=== PATIENT | male | born 1940 | race Caucasian/White ===

== ENCOUNTER → 2021-06-05 17:24 | Outpatient (CLI) | payer MEDICARE, SELFPAY | PROVIDERS: Visit Provider Nurse Practitioner Family | DX: U07.1 COVID-19 (principal) | CPT/HCPCS: C9803; U0003; U0005 ==

== ENCOUNTER 2022-03-10 11:19 | Emergency (ER) | payer MEDICARE, SELFPAY ==
[2022-03-10 11:20] VITALS: BP 154/76; PULSE 72; RESP 17; TEMP 36.6; O2SAT 97; BMI 28.8
--- NOTE | 2022-03-10 11:49 | EXP.UTC ---
Discharge Plan Disposition Patient Disposition: Home, Self-Care Condition: Good Prescriptions Prescriptions: New prednisone [prednisone] 20 mg tablet 20 mg PO BID Qty: 10 0RF No Action ondansetron 4 mg tablet,disintegrating 4 mg PO Q6H PRN (Reason: nausea and vomiting) Qty: 12 0RF amoxicillin 500 mg capsule 500 mg PO Q12H 10 Days Qty: 20 0RF Referrals Follow up/Referrals: Osito Mcdonald MD [Primary Care Provider] - See instructions Clinical Impressions Clinical Impression: Low back pain due to bilateral sciatica Instructions Patient Instructions: DI for Low Back Pain Discharge ED Provider[facility] [place] General Stated complaint: Leg pain, trouble walking Mode of Arrival: Ambulatory Source of Information: Patient Limitations: No Limitations Time Seen by Provider: 03/10/22 11:49 Description of Symptoms (Recalled from Triage Doc. by RN): PATIENT C/O BILATERAL HIP PAIN THAT RADIATES DOWN LEGS SINCE SATURDAY, WITH LEFT SIDE HURTING WORSE. NO KNOWN INJURY HEENT Symptoms (Recalled from RN notes): No Resp Symptoms (Recalled from RN notes): No Skin Symptoms (Recalled from RN notes): No MS Symptoms (Recalled from RN notes): Yes Functional Status (Recalled from RN notes): WNL History of Present Illness Provider Complaint: 81 YR OLD MALE PATIENT C/O BILATERAL HIP PAIN THAT RADIATES DOWN LEGS SINCE SATURDAY, WITH LEFT SIDE HURTING WORSE. NO KNOWN INJURY. 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 NO LOSS OF BOWEL OR BLADDER. 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) Smoking Status: Never smoker alcohol intake: never current occupational status: retired Travel in the last 8 weeks: Inside the [place] ROS Obtained: Yes All systems reviewed & no additional complaints except as documented Constitutional Constitutional: Reports system reviewed and no additional complaints, except as documented, Denies fatigue and Denies fever(s) Eyes Eyes: Reports system reviewed and no additional complaints, except as documented and Denies itchy eyes ENT Ears, Nose, Mouth, and Throat: Reports system reviewed and no additional complaints, except as documented and Denies nasal congestion Cardiovascular Cardiovascular: Reports system reviewed and no additional complaints, except as documented Respiratory Respiratory: Reports system reviewed and no additional complaints, except as documented Gastrointestinal Gastrointestingal: Reports system reviewed and no additional complaints, except as documented Genitourinary Male Genitourinary: Reports system reviewed and no additional complaints, except as documented and Denies genital lesions Musculoskeletal Musculoskeletal: Reports system reviewed and no additional complaints, except as documented, Reports back pain, Reports limited range of motion and Reports radiating pain into limb Integumentary/Breasts Skin/Breast: Reports system reviewed and no additional complaints, except as documented and Denies rash Neurologic Neurologic: Reports system reviewed and no additional complaints, except as documented and Denies confusion Endocrine Endocrine: Reports system reviewed and no additional complaints, except as documented and Denies fatigue Hematologic/Lymphatic Henatologic/Lymphatic: Reports system reviewed and no additional complaints, except as documented Allergic/Immunologic Allergic/Immunologic: Reports system rev
[2022-03-10 12:02] VITALS: BP 154/76; PULSE 72; RESP 17; TEMP 36.6; O2SAT 97
== END 2022-03-10 12:10 | disposition home or self-care (01) ==
PROVIDERS: Emergency Provider Nurse Practitioner Family; PCP Emergency Medicine
DX: M54.41 Lumbago with sciatica, right side (principal); M54.42 Lumbago with sciatica, left side
CPT/HCPCS: 96372; 99212; G0463

== ENCOUNTER 2022-05-12 10:33 | Emergency (ER) | payer MEDICARE, SELFPAY ==
--- NOTE | 2022-05-12 12:53 | EXP.UTC ---
Discharge Plan Disposition Patient Disposition: Home, Self-Care Condition: Good Prescriptions Prescriptions: New azithromycin [Zithromax] 250 mg tablet 250 mg PO UD DOSE PK Qty: 6 0RF Rx Instructions: Take two (2) tablets today, then one (1) tablet days #2 thru #5 benzonatate [benzonatate] 100 mg capsule 100 mg PO TIDP PRN (Reason: Cough) Qty: 30 0RF oseltamivir [Tamiflu] 75 mg capsule 75 mg PO BID Qty: 10 0RF No Action ondansetron 4 mg tablet,disintegrating 4 mg PO Q6H PRN (Reason: nausea and vomiting) Qty: 12 0RF amoxicillin 500 mg capsule 500 mg PO Q12H 10 Days Qty: 20 0RF prednisone [prednisone] 20 mg tablet 20 mg PO BID Qty: 10 0RF Referrals Follow up/Referrals: Osito Mcdonald MD [Primary Care Provider] - See instructions Activity Restrictions/Add. Instructions Additional Instructions/Restrictions: Drink plenty of fluids. Take tylenol or ibuprofen for pain or fever. Take the medications as directed. Follow up with your regular doctor. GO TO THE ER FOR ANY WORSENING SYMPTOMS Clinical Impressions Clinical Impression: Influenza A Instructions Patient Instructions: DI for Influenza -- Adult, Oseltamivir Discharge ED Provider: Gregg Milan [facility] General Stated complaint: Nausea,Congestion,headache Time Seen by Provider: 05/12/22 12:53 History of Present Illness Provider Complaint: He states that for the past 1 day he has had body aches, chills, fever and malaise. He has a productive cough with greenish sputum also. Related Data Previous Rx's Medication Instructions Recorded amoxicillin 500 mg capsule 500 mg PO Q12H sinusitis 10 days 06/05/21 #20 caps ondansetron 4 mg disintegrating 4 mg PO Q6H PRN nausea and 06/05/21 tablet vomiting #12 tabs prednisone 20 mg tablet 20 mg PO BID #10 tabs 03/10/22 azithromycin 250 mg tablet 250 mg PO UD DOSE PK #6 tabs 05/12/22 (Zithromax) benzonatate 100 mg capsule 100 mg PO TIDP PRN Cough #30 caps 05/12/22 oseltamivir 75 mg capsule (Tamiflu) 75 mg PO BID #10 caps 05/12/22 Allergies Allergy/AdvReac Type Severity Reaction Status Date / Time No Known Allergies Allergy Verified 05/12/22 13:09 [facility] Disclaimer: The information contained in this section may have been updated after the patient was seen, as this information can be updated by other users. Social History Smoking Status: Never smoker alcohol intake: never current occupational status: retired Travel in the last 8 weeks: Inside the [place] ROS Obtained: Yes All systems reviewed & no additional complaints except as documented Constitutional Constitutional: Reports chills and Reports fever(s) Eyes Eyes: Denies eye discharge ENT Ears, Nose, Mouth, and Throat: Reports as per HPI Cardiovascular Cardiovascular: Denies chest pain and Denies dyspnea Respiratory Respiratory: Denies shortness of breath, Reports chest congestion, Reports cough, Denies dyspnea, Denies stridor and Denies wheezing Gastrointestinal Gastrointestingal: Reports nausea; Denies abdominal pain, constipation, cramping, diarrhea or vomiting Musculoskeletal Musculoskeletal: Denies arthralgias Integumentary/Breasts Skin/Breast: Denies rash Neurologic Neurologic: Denies paresthesias Allergic/Immunologic Allergic/Immunologic: Denies wheezing Physical Exam General General appearance: alert and in no apparent distress Head Head exam: atraumatic, normocephalic and normal inspection Eye Eye exam: Present normal appearance, PERRL and EOMI ENT ENT exam: Present normal exam, normal oropharynx, mucous membranes moist, TM's normal bilaterally and normal external ear exam Neck Neck exam: Present normal inspection, full ROM and trachea midline; Absent meningismus or lymphadenopathy Chest Chest inspection: Present normal inspection and symmetric chest wall rise; Absent tenderness Respiratory Respiratory e
[2022-05-12 13:01] LABS: UTC Influenza A Antigen Positive (Negative); UTC Influenza B Antigen Negative (Negative)
[2022-05-12 13:05] VITALS: BP 124/91; PULSE 101; RESP 16; TEMP 37.1; O2SAT 95; BMI 33.4
[2022-05-12 13:43] VITALS: BP 124/91; PULSE 101; RESP 16; TEMP 37.1
== END 2022-05-12 13:45 | disposition home or self-care (01) ==
PROVIDERS: Emergency Provider Nurse Practitioner Family; PCP Emergency Medicine
DX: J10.1 Influenza due to other identified influenza virus with other respiratory manifestations (principal); R50.9 Fever, unspecified; R11.2 Nausea with vomiting, unspecified; R09.81 Nasal congestion; R51.9 Headache, unspecified; R53.81 Other malaise; R05.9 Cough, unspecified; Z79.52 Long term (current) use of systemic steroids; Z79.899 Other long term (current) drug therapy
CPT/HCPCS: 87804; 99213; G0463

== ENCOUNTER 2022-12-08 09:24 | Emergency (ER) | payer MEDICARE, SELFPAY ==
[2022-12-08 09:25] VITALS: BP 178/94; PULSE 81; RESP 18; TEMP 36.4; O2SAT 96; BMI 30.4
--- NOTE | 2022-12-08 09:25 | ECG_ITS ---
APPROVED REPORT Exam: Resting ECG HR:78 bpm ECG Measurements Heart Rate 78 AXES WI 177 P 49 QRSd 138 QRS -32 QT 391 T 52 QTc 424 Conclusion SINUS RHYTHM LEFT AXIS DEVIATION [QRS AXIS < -30] RIGHT BUNDLE BRANCH BLOCK [120+ ms QRS DURATION, UPRIGHT V1, 40+ ms S IN I/aVL/V4/V5/V6] POSSIBLE SEPTAL MYOCARDIAL INFARCTION , PROBABLY OLD [30 ms Q WAVE IN V1/V2] ABNORMAL ECG INTERPRETATION BASED ON A DEFAULT AGE OF 40 YEARS UNCONFIRMED REPORT Electronically signed by : Miguel Piña MD 12/10/2022 08:18:31
--- NOTE | 2022-12-08 09:28 | PC.NURSE ---
dr law at bedside
[2022-12-08 09:30] VITALS: BMI 30.4
--- NOTE | 2022-12-08 09:30 | XR_ITS ---
PROCEDURE INFORMATION: Exam: XR Chest Exam date and time: 12/08/2022 9:38 AM Age: 82 years old Clinical indication: Pain; Chest pressure; Additional info: Chest pain- high blood pressure TECHNIQUE: Imaging protocol: Radiologic exam of the chest. Views: 1 view. COMPARISON: No relevant prior studies available. FINDINGS: Lungs: Unremarkable. No consolidation. Pleural spaces: Unremarkable. No pleural effusion. No pneumothorax. Heart/Mediastinum: Unremarkable. No cardiomegaly. Bones/joints: Unremarkable. IMPRESSION: No acute findings.
--- NOTE | 2022-12-08 09:33 | HMH.EDCP ---
Discharge Plan Disposition Patient Disposition: Home, Self-Care Condition: Good Chief Complaint: Chest Pain Prescriptions Prescriptions: No Action No Known Home Medications Referrals Follow up/Referrals: Provider,Lyle, [Primary Care Provider] - See instructions Activity Restrictions/Add. Instructions Additional Instructions/Restrictions: Please follow-up with your primary care doctor within about 1 week. I recommend that you be seen by e commerce web developer to be evaluated. Please discussed the possible need for stress test. Return to the emergency department immediately if you feel worse in any way. Your work-up in the emergency department today did not show any life-threatening or dangerous causes for your chest pain. I suspect that it may be due to reflux disease since it is worse when you are laying flat. Clinical Impressions Clinical Impression: Atypical chest pain Instructions Patient Instructions: DI for Atypical Chest Pain Discharge ED Provider: Mohsen Belle Chest Pain HPI General Chief Complaint: Chest Pain Stated Complaint: chest pain Time Seen by Provider: 12/08/22 09:27 Mode of Arrival: Family Vehicle History of Present Illness HPI narrative: The patient presents to the emergency department complaining of central and left-sided chest pain for the last 2 days. It is episodic and lasts approximately 30 minutes at a time. It is worse when laying down. It is not exacerbated by exertion. The patient has no cardiac history. He takes no medications. He is in good health. He seeks his medical care at the [facility]. However, Dr. Mcdonald is his primary care doctor on his paperwork. He has never seen Dr. Mcdonald. He denies shortness of breath, fever, nausea, vomiting. BOBBY Score for Non-Stemi Age of Patient: 80-89 years old Heart Rate: 70-89 bpm Systolic Blood Pressure: 160-199 mmHg Serum Creatinine: 1.20-1.59 mg/dl CHF [place] Class: I-No CHF Other Risk Factors: None Non-Stemi Risk Score: 120 Related Data Home Medications Medication Instructions Recorded Confirmed No Known Home Medications 12/08/22 12/08/22 Allergies Allergy/AdvReac Type Severity Reaction Status Date / Time No Known Allergies Allergy Verified 05/12/22 13:09 [facility] Disclaimer: The information contained in this section may have been updated after the patient was seen, as this information can be updated by other users. Surgical History (Updated 12/08/22 @ 09:35 by Tatiana Mcgovern RN) H/O: knee surgery Family History (Updated 12/08/22 @ 09:35 by Tatiana Mcgovern RN) Other No significant family history Social History (Updated 12/08/22 @ 09:35 by Tatiana Mcgovern RN) Smoking Status: Former smoker alcohol intake: never current occupational status: retired Travel in the last 8 weeks: None ROS Obtained: Yes All systems reviewed & no additional complaints except as documented Physical Exam General General appearance: alert and in no apparent distress Head Head exam: atraumatic Eye Eye exam: Present normal appearance ENT ENT exam: Present normal exam Neck Neck exam: Present normal inspection and full ROM; Absent tenderness or meningismus Chest Chest inspection: Present normal inspection and symmetric chest wall rise; Absent tenderness Respiratory Respiratory exam: Present normal lung sounds bilaterally; Absent respiratory distress or accessory muscle use Cardiovascular Cardiovascular exam: Present regular rate, normal rhythm and normal heart sounds Abdominal Exam Abdominal exam: Present soft and normal bowel sounds; Absent distention, tenderness, heel tap sign, Vanegas's sign, Rovsing's sign, tenderness at McBurney's Point or mass Extremities Exam Extremities exam: Present normal inspection and full ROM; Absent edema or calf tenderness Back Exam Back exam: Present normal inspection; Absent CVA tenderness (R) or CVA tenderness (L) Neurological Exam Neurological exam: Pres
[2022-12-08 09:39] LABS: Basophils % 0.6 % (0.1-2.0); Eosinophils # 0.1 K/mm3 (0.0-0.4); Eosinophils % 1.3 % (0.1-12.0); Hematocrit 50.7 % (42.0-52.0); Hemoglobin 16.2 g/dL (14.1-18.0); Lymphocytes # 1.4 K/mm3 (0.7-4.5); Lymphocytes % 18.8 % (10-50); Mean Corpuscular Hemoglobin 29.3 pg (27.0-31.2); Mean Corpuscular Volume 91.4 fl (80-94); Mean Platelet Volume 8.1 fl (7.4-10.4); Monocytes # 0.4 K/mm3 (0.1-1.0); Monocytes % 4.9 % (1.7-9.3); Neutrophils # 5.4 K/mm3 (1.8-7.8); Neutrophils % 74.4 % (37.0-80.0); Platelet Count 295 K/mm3 (142-424); Red Blood Count 5.54 M/mm3 (4.60-6.20); Red Cell Distribution Width 13.3 % (11.5-17.5); White Blood Count 7.3 K/mm3 (4.8-10.8)
--- NOTE | 2022-12-08 09:42 | PC.NURSE ---
XR AT BEDSIDE
[2022-12-08 09:45] LABS: Anion Gap 13.5 mEq/L (5-15); Blood Urea Nitrogen 15 mg/dl (9-20); Calcium 8.9 mg/dl (8.4-10.2); Carbon Dioxide 25 mmol/L (22.0-30.0); Chloride 105 mmol/L (98-107); Creatinine Clearance Estimated 62 mL/min (50-200); Estimated Glomerular Filt Rate 58 ml/min (>60); GFR (African American) 70 ML/MIN (>60); Glucose 111 mg/dl (74-100); Potassium 3.5 mmoL/L (3.5-5.1); Sodium 140 mmol/L (136-145)
[2022-12-08 10:00] VITALS: BP 117/103; PULSE 68; RESP 12; O2SAT 97
[2022-12-08 10:00] LABS: Troponin I < 0.01 ng/ml (0.00-0.034)
--- NOTE | 2022-12-08 10:02 | PC.NURSE ---
ROUNDED ON PT, UPDATED ON POC. NO NEEDS AT THIS TIME. FAMILY AT BEDSIDE
--- NOTE | 2022-12-08 10:08 | PC.NURSE ---
DR KING AT BEDSIDE TO UPDATE PT AND FAMILY
[2022-12-08 10:20] VITALS: BP 160/90; PULSE 68; RESP 18; TEMP 36.6; O2SAT 96
== END 2022-12-08 10:23 | disposition home or self-care (01) ==
PROVIDERS: Emergency Provider Emergency Medicine
DX: R07.89 Other chest pain (principal); I45.19 Other right bundle-branch block; R94.31 Abnormal electrocardiogram [ECG] [EKG]; Z87.891 Personal history of nicotine dependence
CPT/HCPCS: 71045; 80048; 84484; 85025; 93005; 99284

== ENCOUNTER → 2022-12-12 09:10 | Outpatient (CLI) | payer MEDICARE, SELFPAY ==
[2022-12-12 10:11] LABS: Alanine Aminotransferase 22 U/L (12-78); Albumin Level 4.1 g/dl (3.5-5.0); Alkaline Phosphatase 80 U/L (38-126); Aspartate Amino Transferase 30 U/L (17-59); Bilirubin,Indirect 0.9 mg/dL (0.0-0.9); Bilirubin,Total 0.9 mg/dl (0.2-1.3); Bilirubin,Unconjugated 1.1 mg/dL (0.0-1.1); Chol/HDL Ratio 4.4 (1-3.5); Cholesterol 169 mg/dl (140-200); HDL Cholesterol 38 mg/dl (40-60); Total Protein,Serum 6.4 g/dl (6.3-8.2); Triglycerides 70 mg/dl (30-150); VLDL Cholesterol 14 mg/dL (0-40)
[2022-12-12 10:22] LABS: Direct LDL Cholesterol 106.27 mg/dL (100-129)
== END ==
PROVIDERS: PCP Emergency Medicine; Visit Provider Nurse Practitioner
DX: E78.5 Hyperlipidemia, unspecified (principal); R07.89 Other chest pain
CPT/HCPCS: 36415; 80061; 80076

== ENCOUNTER → 2022-12-14 06:11 | Outpatient (CLI) | payer MEDICARE, SELFPAY ==
--- NOTE | 2022-12-14 | CA_ITS ---
APPROVED REPORT Exam: Pharmacologic Technologist: Ansley Gold, Ht: 5 ft 8 in Wt: 191 lbs BSA: 2.00 m2 HR: 66 bpm BP: 149/71 mmHg Rhythm: NSR, RBBB. LAFB, DELAYED R/S TRANSITION Medical History Medical History: HTN Medications: Omeprazole,,,,, Allergies: No known drug allergies Cardiac Risk Factors: HTN, Smoking Stress Test Details Test: LEXISCAN HR Resting HR: 72 bpm Max Heart Rate (APMHR): 139 bpm Max HR Achieved: 96 bpm Target HR (85% APMHR): 118 bpm % of APMHR: 69 Recovery HR: 82 bpm BP Resting BP: 149/71 mmHg Max BP: 152/73 mmHg Recovery BP: 141.0/67.0 mmHg ECG Resting ECG: NSR, RBBB, LAFB, DELAYED R/S TRANSITION Stress ECG: NO CHANGE Arrhythmia: NONE Recovery ECG: NO CHANGE Recovery Arrhythmia: NONE Clinical Exercise duration: 04:00 min Highest Stage Achieved: Exercise capacity: 1.0 METs Stress ECG Conclusion NO SYMPTOMS NO SIGNIFICANT ST CHANGES WITH STRESS UNREMARKABLE LEXISCAN STRESS MYOVIEW IMAGES REPORTED SEPARATELY Test Summary REST 04:07 . . 72 . 149/ 71 . . Stage 1 01:00 . . 79 . . . . Stage 2 01:00 . . 93 . 152/ 73 . . Stage 3 01:00 . . 90 . 147/ 71 . . Stage 4 01:00 . . 86 . 139/ 70 . Stop exercise at 04:00 RECOVERY 01:00 . . 83 . . . . RECOVERY 02:00 . . 83 . 141/ 67 . . RECOVERY 02:17 . . 84 . 141/ 67 . . Electronically signed by : Deann Castro, 12/22/2022 15:01:42
--- NOTE | 2022-12-14 06:17 | NM_ITS ---
APPROVED REPORT Exam: Nuclear Stress Test Indication: chest pain Patient Location: Outpatient Stress Tech: Ansley Gold [place] Tech:Tatiana Riley TATIANA RT(R)(N) Ht: 5 ft 8 in Wt: 190 lbs HR: 72 bpm BP: 149/71 mmHg BSA: 2.00 m2 TID: 0.93 BMI: 28.8 History: chest pain Procedure: Patient received 0.0 mg of intravenous Lexiscan, resting heart rate 72 bpm, resting blood pressure 149/71 mmHg, with Lexiscan maximum heart rate achieved was 96 bpm which is 85 % of the maximum predicted heart rate and blood pressure was 152/73 mmHg. With Lexiscan, patient denied any complaint of chest pain. Cardiac Stress and Resting SPECT Images: Cardiac Stress and Resting SPECT images were obtained using technetium 99m Myoview 32.8 mCi stress and 10.60 mCi at rest. Resting and stress imaging in supine position demonstrate a large-sized, moderate, fixed perfusion defect in the inferior and inferoapical LV region. This defect is no longer visualized with prone stress imaging. Findings are suggestive of possible diaphragmatic attenuation. Gated imaging demonstrates a low-normal global and regional LV systolic function. LVEF is calculated at 53%. Conclusion: Diaphragmatic attenuation is present. No definite fixed or perfusion defects are present. Gated imaging demonstrates a low-normal global and regional LV systolic function. LVEF is calculated at 53%. Electronically signed by : Deann Castro, 12/22/2022 15:08:02
== END ==
PROVIDERS: PCP Emergency Medicine; Visit Provider Nurse Practitioner
DX: R07.89 Other chest pain (principal)
CPT/HCPCS: 78452; 93017; A9502; J2785

== ENCOUNTER 2024-04-16 17:47 | Emergency (ER) | payer MEDICARE, SELFPAY ==
--- NOTE | 2024-04-16 17:50 | ECG_ITS ---
APPROVED REPORT Exam: Resting ECG HR:88 bpm ECG Measurements Heart Rate 88 AXES WA 173 P 60 QRSd 142 QRS -30 QT 382 T 46 QTc 428 Conclusion Sinus rhythm Right bundle branch block Electronically signed by : DEBBIE MCINTYRE, 04/16/2024 23:07:14
--- NOTE | 2024-04-16 17:59 | ED_ITS ---
Discharge Plan Disposition Patient Disposition: Home, Self-Care Condition: Good Prescriptions Prescriptions: No Action omeprazole 20 mg tablet,delayed release (DR/EC) 20 mg PO DAILY Referrals Follow up/Referrals: Samm Grace APRN [Primary Care Provider] - See instructions Femi Negro II, MD [Staff Physician] - See instructions Ab Castro MD [Staff Physician] - See instructions Activity Restrictions/Add. Instructions Additional Instructions/Restrictions: Continue taking your GERD medication. I have referred you to both cardiology and gastroenterology for further evaluation of this chest pain that also may be possibly gastrointestinal nature. Follow-up with your PCP within 48 hours. Return to ER for any worsening signs or symptoms as needed Clinical Impressions Clinical Impression: Chest pain Qualifiers: Chest pain type: unspecified Qualified Code(s): R07.9 - Chest pain, unspecified Print Language Print Language: Thai Discharge ED Provider: Andrew Irvin HPI <CHANNING Cox - Last Filed: 04/16/24 22:52> General Stated Complaint: chest pain Time Seen by Provider: 04/16/24 17:59 History of Present Illness HPI narrative: Patient presents for evaluation of chest pain. Patient gives a history of 3 days of continuous substernal chest pain. It does not radiate. He has no known cardiac history. He denies any fever chills hemoptysis hematochezia melena nausea vomiting diarrhea sore throat shortness of breath. Related Data Home Medications ?Medication ?Instructions ?Recorded ?Confirmed omeprazole 20 mg tablet,delayed 20 mg PO DAILY 12/12/22 01/30/23 release Allergies Allergy/AdvReac Type Severity Reaction Status Date / Time No Known Allergies Allergy Verified 01/30/23 09:32 PFS <CHANNING Cox - Last Filed: 04/16/24 22:52> [facility] Disclaimer: The information contained in this section may have been updated after the patient was seen, as this information can be updated by other users. Surgical History H/O: knee surgery Family History Other No significant family history Social History Smoking Status: Former smoker alcohol intake: never current occupational status: retired Travel in the last 8 weeks: None Other Medical History Have you received the Pneumonia Vaccine: Yes <CHANNING Cox - Last Filed: 04/16/24 22:52> ROS Obtained: Yes Systems reviewed as appropriate & no additional complaints except as documented Physical Exam <CHANNING Cox - Last Filed: 04/16/24 22:52> General General appearance: alert and in no apparent distress Respiratory Respiratory exam: Present normal lung sounds bilaterally Cardiovascular Cardiovascular exam: Present regular rate Neurological Exam Neurological exam: Present alert and oriented X3 HEART Score <CHANNING Cox - Last Filed: 04/16/24 22:52> HEART Score HEART Score assessment performed?: Yes History (anamnesis): Slightly suspicious ECG: Normal Age: >65 years Risk factors: 1-2 risk factors Troponin: </= normal limit HEART Score: 3 <Andrew Irvin MD - Last Filed: 04/16/24 23:14> HEART Score HEART Score: 3 Critical Care <CHANNING Cox - Last Filed: 04/16/24 22:52> Critical Care Time Critical Care Time: No Medical Decision Making <CHANNING Cox - Last Filed: 04/16/24 22:52> Medical Records Medical records reviewed: Yes I reviewed the patient's medical records. Bartolome Inquiry Pt receiving controlled substance: No Vital Signs Vital Signs: 04/16/24 19:20 Temperature 98.2 F Temperature Source Oral Pulse Rate 73 Respiratory Rate 18 Blood Pressure 135/76 Oxygen Delivery Method Room Air Lab Data Lab results reviewed: Yes I reviewed the patient's lab results. Labs: Lab Results 04/16/24 17:52: WBC 9.2, RBC 5.23, Hgb 16.2, Hct 47.3, MCV 90.5, MCH 31.0, MCHC 34.3, RDW 13.3, Plt Count 322, MPV 7.7, Neut % (Auto) 70.1, Lymph % (Auto) 21.0, [place] % (Auto) 6.9, Eos % (Auto) 1.1, Baso % (Auto) 0.8, Neut # (Auto) 6.4, Lymph # (Auto) 1.9, [place] # (Auto) 0.6, Eos # (Auto) 0.1, Baso # (Auto) 0.1, PT 10.9, INR 0.97, D-Dimer 0.71 H, Sodium 140, Potassium 3.6, Chloride 107, Carbon Dioxide 25, Anion Gap 11.6, BUN 15, Creatinine 1.40 H, Estimated GFR 49 L, Est GFR ( Amer) 59, Glucose 114 H, Calcium 9.2, Magnesium 2.3, Total Bilirubin 1.2, AST 29, ALT 21, Alkaline Phosphatase 78, Troponin I < 0.01, NT-Pro-B Natriuret Pep 77.8, Total Protein 7.4, Albumin 4.5, Globulin 2.9, Albumin/Globulin Ratio 1.6, Lipase 149, TSH 4.35, Free T4 Index 3.2 L, Thyroxine (T4) 9.1, T3 Uptake 35 04/16/24 17:52 04/16/24 17:52 Response Orders (Tests/Meds): ED MEDICATIONS Discontinued Medications Generic Name Dose Route Start Last Admin Trade Name Nichole PRN Reason Stop Dose Admin Acetaminophen 1,000 mg 04/16/24 17:59 04/16/24 19:15 Acetaminophen 1,000mg/100ml Vial IV 04/16/24 18:00 1,000 mg ONCE ONE Administration Belladonna Alkaloids 60 ml 04/16/24 17:59 04/16/24 19:14 Belladonna Alkaloids 60 Ml Ml PO 04/16/24 18:00 60 ml ONCE ONE Administration Ketorolac Tromethamine 15 mg 04/16/24 17:59 04/16/24 19:15 Ketorolac 30mg/Ml Vial IV 04/16/24 18:00 15 mg ONCE ONE Administration ORDERS Category Date Time Status Chest XR 2 view (NOT portable) [XR chest 2V] Stat Exams 04/16/24 18:00 Completed BNP [NT Pro Brain Natriuretic Pep.] Stat Lab 04/16/24 17:52 Completed CBC w/Auto Diff [Complete Blood Count Auto Diff] Stat Lab 04/16/24 17:52 Completed CMP [Comprehensive Metabolic Panel] Stat Lab 04/16/24 17:52 Completed D-Dimer Stat Lab 04/16/24 17:52 Completed INR [Prothrombin Time INR] Stat Lab 04/16/24 17:52 Completed Lipase Stat Lab 04/16/24 17:52 Completed Magnesium Stat Lab 04/16/24 17:52 Completed Thyroid Panel Stat Lab 04/16/24 17:52 Completed Trop I [Troponin I] Stat Lab 04/16/24 17:52 Completed MDM Narrative Medical Decision Narrative: In summary patient is a 83-year-old male who presents to the emergency department for evaluation of chest pain. Patient is hemodynamically stable upon arrival, febrile. Physical exam is remarkable for nonreproducible chest pain on evaluation with normal breath sounds normal heart sounds no abdominal tenderness with normal bowel sounds. Differential diagnosis includes ACS versus GERD versus esophagitis versus ulcer disease etc. Initial workup will be conducted with hematologic labs twelve-lead EKG plain film chest x-ray COVID and flu swabs. Initial interventions include Tylenol Toradol GI cocktail. Initial workup reviewed by me shows that his hematologic labs are nonactionable, D-dimer is age appropriately negative, his troponin is undetectable, his plain film chest x-ray personally interpreted informally by me shows no acute processes. Upon repeat evaluation patient had complete resolution of his symptoms after initial intervention. Given this given this we have essentially ruled out any acute or serious life-threatening conditions and as he has had continuous chest pain for 3 days and a negative troponin makes outpatient follow-up more appropriate with a heart score of 3. To that end patient will be referred to cardiology and gastroenterology for further investigation. Patient given strict return precautions. <Andrew Irvin MD - Last Filed: 04/16/24 23:14> Vital Signs Vital Signs: 04/16/24 19:20 Temperature 98.2 F Temperature Source Oral Pulse Rate 73 Respiratory Rate 18 Blood Pressure 135/76 Oxygen Delivery Method Room Air Lab Data Labs: Lab Results 04/16/24 17:52: WBC 9.2, RBC 5.23, Hgb 16.2, Hct 47.3, MCV 90.5, MCH 31.0, MCHC 34.3, RDW 13.3, Plt Count 322, MPV 7.7, Neut % (Auto) 70.1, Lymph % (Auto) 21.0, [place] % (Auto) 6.9, Eos % (Auto) 1.1, Baso % (Auto) 0.8, Neut # (Auto) 6.4, Lymph # (Auto) 1.9, [place] # (Auto) 0.6, Eos # (Auto) 0.1, Baso # (Auto) 0.1, PT 10.9, INR 0.97, D-Dimer 0.71 H, Sodium 140, Potassium 3.6, Chloride 107, Carbon Dioxide 25, Anion Gap 11.6, BUN 15, Creatinine 1.40 H, Estimated GFR 49 L, Est GFR ( Amer) 59, Glucose 114 H, Calcium 9.2, Magnesium 2.3, Total Bilirubin 1.2, AST 29, ALT 21, Alkaline Phosphatase 78, Troponin I < 0.01, NT-Pro-B Natriuret Pep 77.8, Total Protein 7.4, Albumin 4.5, Globulin 2.9, Albumin/Globulin Ratio 1.6, Lipase 149, TSH 4.35, Free T4 Index 3.2 L, Thyroxine (T4) 9.1, T3 Uptake 35 Response Orders (Tests/Meds): ED MEDICATIONS Discontinued Medications Generic Name Dose Route Start Last Admin Trade Name Freq PRN Reason Stop Dose Admin Acetaminophen 1,000 mg 04/16/24 17:59 04/16/24 19:15 Acetaminophen 1,000mg/100ml Vial IV 04/16/24 18:00 1,000 mg ONCE ONE Administration Belladonna Alkaloids 60 ml 04/16/24 17:59 04/16/24 19:14 Belladonna Alkaloids 60 Ml Ml PO 04/16/24 18:00 60 ml ONCE ONE Administration Ketorolac Tromethamine 15 mg 04/16/24 17:59 04/16/24 19:15 Ketorolac 30mg/Ml Vial IV 04/16/24 18:00 15 mg ONCE ONE Administration ORDERS Category Date Time Status Chest XR 2 view (NOT portable) [XR chest 2V] Stat Exams 04/16/24 18:00 Completed BNP [NT Pro Brain Natriuretic Pep.] Stat Lab 04/16/24 17:52 Completed CBC w/Auto Diff [Complete Blood Count Auto Diff] Stat Lab 04/16/24 17:52 Completed CMP [Comprehensive Metabolic Panel] Stat Lab 04/16/24 17:52 Completed D-Dimer Stat Lab 04/16/24 17:52 Completed INR [Prothrombin Time INR] Stat Lab 04/16/24 17:52 Completed Lipase Stat Lab 04/16/24 17:52 Completed Magnesium Stat Lab 04/16/24 17:52 Completed Thyroid Panel Stat Lab 04/16/24 17:52 Completed Trop I [Troponin I] Stat Lab 04/16/24 17:52 Completed ECG Data Tracing #1: Attestation: I reviewed this ECG and interpreted as documented below: (Sinus rhythm 88 beats a minute without ST or T wave changes concerning for acute ischemia. Right bundle branch block morphology intervals within normal limits otherwise.) MDM Narrative Medical Decision Narrative: In summary patient is a 83-year-old male who presents to the emergency department for evaluation of chest pain. Patient is hemodynamically stable upon arrival, febrile. Physical exam is remarkable for nonreproducible chest pain on evaluation with normal breath sounds normal heart sounds no abdominal tenderness with normal bowel sounds. Differential diagnosis includes ACS versus GERD versus esophagitis versus ulcer disease etc. Initial workup will be conducted with hematologic labs twelve-lead EKG plain film chest x-ray COVID and flu swabs. Initial interventions include Tylenol Toradol GI cocktail. Initial workup reviewed by me shows that his hematologic labs are nonactionable, D-dimer is age appropriately negative, his troponin is undetectable, his plain film chest x-ray personally interpreted informally by me shows no acute processes. Upon repeat evaluation patient had complete resolution of his symptoms after initial intervention. Given this given this we have essentially ruled out any acute or serious life-threatening conditions and as he has had continuous chest pain for 3 days and a negative troponin makes outpatient follow-up more appropriate with a heart score of 3. To that end patient will be referred to cardiology and gastroenterology for further investigation. Patient given strict return precautions. I was consulted by the VY, and we discussed the complexity of the problems being addressed. I approved the treatment and management plan for this patient's care in the Emergency Department, thus performing a substantive portion of the medical decision making. Andrew Irvin MD
--- NOTE | 2024-04-16 18:00 | XR_ITS ---
PROCEDURE INFORMATION: Exam: XR Chest Exam date and time: 04/16/2024 6:25 PM Age: 83 years old Clinical indication: Pain; Other: Chest; Additional info: Chest pain TECHNIQUE: Imaging protocol: Radiologic exam of the chest. Views: 2 views. PA and Lateral COMPARISON: No relevant prior studies available. FINDINGS: Tubes, catheters and devices: Surgical clips overlie the right abdomen. Lungs: Left lung volume appears decreased. Linear density identified within left lower lung. Possible atelectasis or scarring. The lungs appear otherwise clear. Pleural spaces: No pleural effusion. No pneumothorax. Heart/Mediastinum: Mediastinum and efrain appear unremarkable. Diaphragm: Elevation of the left hemidiaphragm is demonstrated. Bones/joints: Mild to moderate generalized bony degenerative changes. Bony structures appear otherwise unremarkable. IMPRESSION: Linear left lower chest pulmonary atelectasis or scarring. Left lung volume loss.
[2024-04-16 18:14] LABS: Albumin Level 4.5 g/dl (3.5-5.0); Chloride 107 mmol/L (98-107)
[2024-04-16 18:15] LABS: Potassium 3.6 mmoL/L (3.5-5.1); Sodium 140 mmol/L (136-145)
[2024-04-16 18:17] LABS: Alanine Aminotransferase 21 U/L (12-78); Aspartate Amino Transferase 29 U/L (17-59); Blood Urea Nitrogen 15 mg/dl (9-20); Estimated Glomerular Filt Rate 49 ml/min (>60); GFR (African American) 59 ML/MIN (>60); INR 0.97 (0.9-1.1); Prothrombin Time 10.9 seconds (10.1-12.5)
[2024-04-16 18:18] LABS: Albumin/Globulin Ratio 1.6 (1.1-1.8); Alkaline Phosphatase 78 U/L (38-126); Anion Gap 11.6 mEq/L (5-15); Bilirubin,Total 1.2 mg/dl (0.2-1.3); Calcium 9.2 mg/dl (8.4-10.2); Carbon Dioxide 25 mmol/L (22.0-30.0); Globulin 2.9 g/dL (1.3-3.2); Glucose 114 mg/dl (74-100); Lipase 149 U/L (23-300); Magnesium 2.3 mg/dl (1.6-2.3); Total Protein,Serum 7.4 g/dl (6.3-8.2)
[2024-04-16 18:21] LABS: Basophils # 0.1 K/mm3 (0-0.2); Basophils % 0.8 % (0.1-2.0); Eosinophils # 0.1 K/mm3 (0.0-0.4); Eosinophils % 1.1 % (0.1-12.0); Hematocrit 47.3 % (42.0-52.0); Hemoglobin 16.2 g/dL (14.1-18.0); Lymphocytes # 1.9 K/mm3 (0.7-4.5); Mean Corpuscular HGB Conc 34.3 g/dL (31.8-35.4); Mean Corpuscular Volume 90.5 fl (80-94); Mean Platelet Volume 7.7 fl (7.4-10.4); Monocytes # 0.6 K/mm3 (0.1-1.0); Monocytes % 6.9 % (1.7-9.3); Neutrophils # 6.4 K/mm3 (1.8-7.8); Neutrophils % 70.1 % (37.0-80.0); Platelet Count 322 K/mm3 (142-424); Red Blood Count 5.23 M/mm3 (4.60-6.20); Red Cell Distribution Width 13.3 % (11.5-17.5); White Blood Count 9.2 K/mm3 (4.8-10.8)
[2024-04-16 18:27] LABS: NT Pro Brain Natriuretic Pep. 77.8 pg/mL (0-450)
[2024-04-16 18:33] LABS: Troponin I < 0.01 ng/ml (0.00-0.034)
[2024-04-16 18:37] LABS: D-Dimer 0.71 ug/mL (0.0-0.5)
[2024-04-16 18:39] LABS: Triiodothryronine (T3) Uptake 35 % (23.5-40.5)
[2024-04-16 18:40] LABS: Free Thyroxine Index 3.2 ug/dL (5.93-13.13); T4 (Thyroxine) 9.1 ug/dl (5.53-11.0)
[2024-04-16 18:53] LABS: Thyroid Stimulating Hormone 4.35 uIU/mL (0.465-4.68)
[2024-04-16] MEDS: BELLADONNA ALKALOIDS 60 ML ML PO (19:14)
[2024-04-16] MEDS: ACETAMINOPHEN 1,000MG/100ML VIAL 1000 MG IV (19:15)
[2024-04-16] MEDS: KETOROLAC 30MG/ML VIAL 15 MG IV (19:15)
[2024-04-16 19:20] VITALS: BP 135/76; PULSE 73; RESP 18; TEMP 36.8; O2SAT 97
== END 2024-04-16 19:23 | disposition home or self-care (01) ==
PROVIDERS: Physician Assistant; Emergency Provider Emergency Medicine; PCP Nurse Practitioner Family
DX: R07.9 Chest pain, unspecified (principal)
CPT/HCPCS: 71046; 80053; 83690; 83735; 83880; 84436; 84443; 84479; 84484; 85025; 85378; 85610; 93005; 96374; 96375; 99285; J0131; J1885

== ENCOUNTER 2024-05-29 08:50 | Outpatient (CLI) | payer MEDICARE, SELFPAY ==
[2024-05-29] VITALS (9 sets, daily range): BP systolic 89–179; BP diastolic 54–101; PULSE 49–82; RESP 17–20; TEMP 36.8; O2SAT 94–96; BMI 28.7
[2024-05-29] MEDS: METOPROLOL TARTRATE 50MG TABLET *IVABRADINE+METOPROLOL REGIMINE 75 MG PO (09:16)
[2024-05-29] MEDS: IVABRADINE HCL 7.5MG TABLET *IVABRADINE+METOPROLOL REGIMINE 15 MG PO (09:17)
[2024-05-29 09:30] LABS: Chloride 109 mmol/L (98-107); Sodium 137 mmol/L (136-145)
[2024-05-29 09:33] LABS: Blood Urea Nitrogen 14 mg/dl (9-20); Calcium 9.3 mg/dl (8.4-10.2); Carbon Dioxide 28 mmol/L (22.0-30.0); Creatinine Clearance Estimated 49 mL/min (50-200); Estimated Glomerular Filt Rate 49 ml/min (>60); GFR (African American) 59 ML/MIN (>60); Glucose 95 mg/dl (74-100)
[2024-05-29] MEDS: NITROGLYCERIN 0.4MG SL TABLET 0.8 MG SL (10:02)
[2024-05-29] MEDS: 0.9 % SODIUM CHLORIDE 50 ML VIAL IV (10:18)
[2024-05-29] MEDS: SODIUM CHLORIDE 0.9% 10ML SYR (RAD ONLY) 10 ML IV (10:18)
[2024-05-29] MEDS: IOPAMIDOL-370 (76%);100ML BOTTLE 85 ML IV (10:18)
[2024-05-29] MEDS: 0.9 % SODIUM CHLORIDE 1000ML 1,000 ML 999 ML IV (10:30)
== END 2024-05-29 10:58 | disposition home or self-care (01) ==
PROVIDERS: PCP Family Medicine; Visit Provider Family Medicine
DX: R07.89 Other chest pain (principal); R68.89 Other general symptoms and signs; R06.09 Other forms of dyspnea; I20.89 Other forms of angina pectoris
CPT/HCPCS: 75574; 80048; J7030; Q9967

== ENCOUNTER 2024-08-20 10:34 | Outpatient (CLI) | payer MEDICARE, SELFPAY ==
[2024-08-20 19:21] LABS: Alanine Aminotransferase 23 U/L (12-78); Albumin Level 4.1 g/dl (3.5-5.0); Albumin/Globulin Ratio 1.8 (1.1-1.8); Alkaline Phosphatase 87 U/L (38-126); Anion Gap 10.4 mEq/L (5-15); Aspartate Amino Transferase 35 U/L (17-59); Bilirubin,Total 0.7 mg/dl (0.2-1.3); Blood Urea Nitrogen 20 mg/dl (9-20); Calcium 9.4 mg/dl (8.4-10.2); Carbon Dioxide 26 mmol/L (22.0-30.0); Chloride 112 mmol/L (98-107); Chol/HDL Ratio 5.6 (1-3.5); Cholesterol 201 mg/dl (140-200); Estimated Glomerular Filt Rate 53 ml/min (>60); GFR (African American) 64 ML/MIN (>60); Globulin 2.3 g/dL (1.3-3.2); Glucose 81 mg/dl (74-100); HDL Cholesterol 36 mg/dl (40-60); Potassium 4.4 mmoL/L (3.5-5.1); Sodium 144 mmol/L (136-145); Total Protein,Serum 6.4 g/dl (6.3-8.2); Triglycerides 71 mg/dl (30-150); VLDL Cholesterol 14 mg/dL (0-40)
[2024-08-20 19:52] LABS: Prostate Specific Ag Screen 28.6 ng/ml (0.0-4.0)
[2024-08-20 21:26] LABS: Direct LDL Cholesterol 139.57 mg/dL (100-129)
== END 2024-08-20 23:59 | disposition home or self-care (01) ==
LOC: LAB.DROPOF 08-21 10:09
PROVIDERS: PCP Family Medicine; Visit Provider Family Medicine
DX: E78.5 Hyperlipidemia, unspecified (principal); I10 Essential (primary) hypertension; Z12.5 Encounter for screening for malignant neoplasm of prostate
CPT/HCPCS: 80053; 80061; G0103

== ENCOUNTER 2024-09-07 10:12 | Outpatient (CLI) | payer MEDICARE, SELFPAY ==
[2024-09-07 11:30] LABS: Blood Urea Nitrogen 11 mg/dl (9-20); Estimated Glomerular Filt Rate 53 ml/min (>60); GFR (African American) 64 ML/MIN (>60)
== END 2024-09-07 23:59 | disposition home or self-care (01) ==
LOC: LAB 10:13
PROVIDERS: PCP Family Medicine; Visit Provider Urology
DX: N40.0 Benign prostatic hyperplasia without lower urinary tract symptoms (principal); R10.9 Unspecified abdominal pain
CPT/HCPCS: 36415; 82565; 84520

== ENCOUNTER 2024-09-23 09:24 | Outpatient (CLI) | payer MEDICARE, SELFPAY ==
--- OUTSIDE RECORDS SUMMARY | 2024-09-23 09:27 | XMS_ITS ---
Author Organization Unknown TREATMENT PLAN Planned Care Start Date Provider Encounter for Check-up [id number] [facility]
--- OUTSIDE RECORDS SUMMARY | 2024-09-23 09:27 | XMS_ITS | Continuity of Care Document ---
Author Name [facility] Organization [facility] Care Team Providers Care Dental Surgeon Name Role Phone [facility] Unavailable Unavailable Problems Combined list of problems from Department of Defense and Veterans Affairs facilities. It does not include entries that were removed or entered in error. 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[place] [facility] DJD of Knee [facility] Epithelial basement membrane dystrophy [facility] Epiretinal membrane (SNOMED CT 707878120) Active Condition Dec 18, 2007 Entered By: Martin WILLIS Comment: od>os [place] [facility] Ex-tobacco user Active [facility] Family history of cancer Active Condition [place] [facility] GERD [facility] Hiatal hernia * (ICD-9-CM 553.3) [facility] Mixed hyperlipidemia Active [facility] Nevus, 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 Dec 17 8 Entered By: Martin WILLIS Comment: choroidal, od [place] [facility] Osteoarthritis Active [place] [facility] Pain in right knee Active Condition [place] Pseudophakia (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) Active Condition Oct 04, 2004 Entered By: Martin WILLIS Comment: PC IOL os, s/p yag 08/28/04Jan 20, 2007 Entered By: Martin WILLIS Comment: s/p [place] od 01/09/07Jun 2007 Entered By: Martin WILLIS Comment: s/p yag od 12/02/07 [place] Unspecified Arthropathy of Unspecified Site Active [facility] AFTR-CATAR OBSCUR VISION Inactive Condition 09/08/2007 Sep 08, 2007 Entered By: GIULIANO PENA Comment: PER DR PENA [facility] INCIPIENT CATARACT Inactive Condition 01/20/2007 [facility] Senile cataract * (ICD-9-CM 366.10) Inactive Condition 01/20/2007 [place] [facility] Medications Combined list of outpatient medications from Department of Defense and Veterans Affairs facilities.Medications provided include 1) outpatient medications from the last 15 months, and 2) patient-reported medications. Medication Details Route Status Patient Instructions Prescription Expires Prescription Number Last Dispense Date Ordering Provider Order Date Order Qty Source ACETAMINOPH EN 325MG TAB TAKE ONE TABLET BY MOUTH DAILY NEEDED ORAL ACTIVE MEGHANN RIDLEY 2020 [place] [facility] Allergies, Adverse Reactions, Alerts Combined list of allergies from Department of Defense and Veterans Affairs facilities. It does not include entries that were removed or entered in error. Substance Category Reaction Severity Reaction type Status Date Reported Comments Source COLE Propensity to adverse reactions to drug (finding) Edema active 2 [facility] Immunizations Combined list of available immunizations from the Department of Defense and Veterans Affairs facilities. Immunization Series Date Given Administered By Site Reaction Lot Number CVX Code Drug Reverse Unit Operator Fisherman Status Comments Source DTP 2015 01 complet ed [place] [facility] [place] [id number] (HISTORICAL) 2015 133 complet ed [place] [facility] TDAP (HISTORICAL) 2015 115 complet ed [place] [facility] [place] FLU,3 YRS (HISTORICAL) 2012 88 complet ed [place] [facility] [place] INFLUENZA A & B (HISTORICAL) 2012 88 complet ed [place] [facility] [place] INFLUENZA A & B (HISTORICAL) 2009 88 complet ed [place] [facility] [place] TD(ADULT) UNSPECIFIED FORMULATION 2008 139 complet ed td given in (l) deltoid no reaction noted [place] PNEUMOCOCCAL, UNSPECIFIED FORMULATION 2008 109 complet ed [place] INFLUENZA A & B (HISTORICAL) 2008 88 complet ed [place] [facility] [place] INFLUENZA A & B (HISTORICAL) 2007 88 complet ed [place] [facility] [place] TD(ADULT) UNSPECIFIED FORMULATION 1997 139 complet ed [place] [facility] Encounters Combined list of: 1) Encounters from Department of Veterans Affairs facilities going backup to the last 18 months, not all [place] inpatient encounters are included; 2) Encounters from the Department of [facility] facilities going backup to 280 months. Location Location Details Encounter Type Encounter Number Reason For Visit Attending Provider ADM Date DC Date Status Disposition Source [facility] [id number] 98 09[facility] [facility] Social History Combined list of available smoking, tobacco, and other social history from Department of Defense and Veterans [facility] facilities. Social History Type Response Date Comment Sourc e Tobacco smoking status NHIS [place]-TOBACCO FORMER USER 09/15/2020 [facility] History of tobacco use V9 LIFETIME NON-USER OF TOBACCO 01/06/2018 [facility] History of tobacco use V9 QUIT TOBACCO >7 YEARS AGO 12/17/2016 [facility] History of tobacco use V9 LIFETIME NON-USER OF TOBACCO 12/01/2015 [facility] History of tobacco use V9 QUIT TOBACCO >7 YEARS AGO 01/26/2014 [facility] History of tobacco use V9 QUIT TOBACCO >7 YEARS AGO 03/13/2013 [facility] History of tobacco use V9 QUIT TOBACCO >7 YEARS AGO 01/24/2012 [facility] History of tobacco use V9 QUIT TOBACCO >7 YEARS AGO 01/12/2011 [facility] History of tobacco use V9 QUIT TOBACCO >7 YEARS AGO 02/28/2010 [facility] History of tobacco use V9 QUIT TOBACCO >7 YEARS AGO 10/30/2006 [facility] History of tobacco use HF V9 LIFETIME NON-SMOKER 01/31/2004 [facility] History of tobacco use HF V9 LIFETIME NON-SMOKER 10/13/2002 [facility] History of tobacco use HF V9 LIFETIME NON-SMOKER 09/15/2001 [facility]
[2024-09-23] MEDS: IOPAMIDOL-370 (76%);100ML BOTTLE 75 ML IV (09:41)
[2024-09-23] MEDS: SODIUM CHLORIDE 0.9% 10ML SYR (RAD ONLY) 10 ML IV (09:41)
--- NOTE | 2024-09-23 09:45 | CT_ITS ---
FINAL REPORT TECHNIQUE: Pre-and postcontrast axial imaging of the abdomen and pelvis was obtained. This study was performed with techniques to keep radiation doses as low as reasonably achievable, (ALARA). Individualized dose reduction technique using automated exposure control or adjustment of mA and/or kV according to the patient's size were employed. CLINICAL HISTORY: Right side flank pain FINDINGS: The lung bases are clear. The liver is homogeneous. The spleen, adrenal glands, and pancreas are unremarkable. Bilateral hypodense renal lesions are cysts. On precontrast imaging, no renal stones are identified. Abdominal GI tract is unremarkable. There is no lymphadenopathy or ascites. The appendix is normal. There is diverticulosis without evidence of diverticulitis. There is no lymphadenopathy or ascites. No acute osseous abnormalities identified. IMPRESSION: Bilateral renal cysts. Reviewed, Interpreted and Dictated by Hyacinth Persaud MD Transcribed by Erika Li Authenticated and [facility]
== END 2024-09-23 23:59 | disposition home or self-care (01) ==
PROVIDERS: PCP Family Medicine; Visit Provider Urology
DX: R10.9 Unspecified abdominal pain (principal)
CPT/HCPCS: 74178; Q9967

== ENCOUNTER 2025-05-05 10:06 | Outpatient (CLI) | payer MEDICARE, SELFPAY ==
[2025-05-05 18:23] LABS: Hematocrit 46.5 % (42.0-52.0); Hemoglobin 14.4 g/dL (14.1-18.0); Immature Granulocytes % 0.2 %; Mean Corpuscular HGB Conc 31.0 g/dL (31.8-35.4); Mean Corpuscular Hemoglobin 29.1 pg (27.0-31.2); Mean Corpuscular Volume 94.1 fl (80-94); Nucleated Red Blood Cells % 0 %; Platelet Count 296 K/mm3 (142-424); Red Blood Count 4.94 M/mm3 (4.60-6.20); Red Cell Distribution Width-SD 45.0 fL; White Blood Count 5.2 K/mm3 (4.8-10.8)
[2025-05-05 18:24] LABS: Anion Gap 10.3 mEq/L (5-15); Blood Urea Nitrogen 16 mg/dl (9-20); Calcium 9.3 mg/dl (8.4-10.2); Carbon Dioxide 25 mmol/L (22.0-30.0); Chloride 104 mmol/L (98-107); Creatinine,Serum 1.20 mg/dl (0.66-1.25); Estimated Glomerular Filt Rate 58 ml/min (>60); GFR (African American) 70 ML/MIN (>60); Glucose 88 mg/dl (74-100); Potassium 4.3 mmoL/L (3.5-5.1); Sodium 135 mmol/L (136-145)
--- OUTSIDE RECORDS SUMMARY | 2025-05-10 10:27 | XMS_ITS | Clinical Summary ---
Author Organization Healthcare Address [address] [place] [address] Care Team Providers Care Assembler Arranger Name Role Phone Pcp, No Primary Care Provider Unavailabl e Social History Tobacco Use Types Packs/Day Years Used Date Smoking Tobacco: Never Assessed Comments Unknown Sex and Gender Information Value Date Recorded Sex Assigned at Unknown 06/04/2024 9:20 AM EST Legal Sex Male 8:35 PM EDT Gender Identity Not on file Sexual Orientation Not on file Plan of Treatment Health Maintenance Due Date Last Done Comments [facility]-Bone Density Scan 1941 [facility]-Depression Screening 1941 [facility]-Medicare Annual Wellness (AWV) 1941 [facility]-/Child/Adol SDOH Screenings 1941 [facility]- SDOH Screenings 11/09/1959 [facility]-Adult SDOH Screenings 11/09/1959 [facility]-Zoster Vaccines (1 of 2) 11/09/1991 [facility]-RSV Vaccine: 60+ Years or (1 - 1-dose 75+ series) 2016 [facility]-Pneumococcal Vaccine: 50+ Years (2 of 2 - PCV20 or PCV21) 11/30/2016 12/01/2015, 03/15/2009 [id number] Vaccine (3 - 2024- season) 2025 01/31/2021, 01/10/2021 [facility]-Influenza Vaccine (#1) 02/08/202504/20, 03/13/2013, 02/17/2013, Additional history exists [facility]-DTaP,Tdap,and Td Vaccines (3 - Td or Tdap) 11/30/2025 12/01/2015, 12/01/2015, 05/17/2009, Additional history exists HPV Vaccines Aged Out No longer eligi ble based on patient's age to complete this topic [facility]-HIB Vaccines Aged Out No longer e ligible based on patient's age to complete this topic [facility]-Hepatitis A Vaccines Aged Out No longer eligible based on patient's age to complete this topic [facility]-IPV Vaccines Aged Out No longer e ligible based on patient's age to complete this topic [facility]-Rotavirus Vaccines Aged Out No lo nger eligible based on patient's age to complete this topic Insurance [facility] MEDICARE Care Teams Assembler Arranger Relationship Specialty Start Date End Date Pcp, [place] [address] PCP - General Family Medicine 05/24/24
== END 2025-05-05 23:59 ==
LOC: LAB.DROPOF 05-10 10:06
PROVIDERS: PCP Student in an Organized Health Care Education/Training Program; Visit Provider Student in an Organized Health Care Education/Training Program
DX: I12.9 Hypertensive chronic kidney disease with stage 1 through stage 4 chronic kidney disease, or unspecified chronic kidney disease (principal); N18.31 Chronic kidney disease, stage 3a
CPT/HCPCS: 80048; 85025